=== PATIENT | female | born 2000 | race Caucasian/White ===

== ENCOUNTER 2019-12-04 07:01 | Emergency (ER) | payer OTHER, SELFPAY ==
[2019-12-04 07:02] VITALS: BP 146/86; PULSE 73; RESP 16; TEMP 36.3; O2SAT 98; BMI 22.4
[2019-12-04 07:31] LABS: Absolute Lymphocyte Count 2.59 X10^3/uL (0.83-4.51); Basophil# 0.06 X10^3/uL; Basophil% 0.5 % (0-1); Eosinophils% 0.9 % (0-5); Hematocrit 39.9 % (37-47); Hemoglobin 13.8 g/dL (12.0-15.0); Lymphocyte # 2.59 X10^3/ul (4.0); Lymphocyte % 22.1 % (19-41); Mean Corp Hgb Conc 34.6 g/dL (32-36); Mean Corpuscular Hgb 31.7 pg (27.0-32.0); Mean Corpuscular Volume 91.7 fL (81-99); Mean Platelet Vol. 9.6 fl (6.2-12.0); Monocyte# 0.89 X10^3/uL; Monocyte% 7.6 % (0-10); NRBC Flagged by Analyzer 0 % (0-5); Neutrophil # 8.01 X10^3/uL (2.7-7.7); Neutrophil % 68.4 % (47-70); Platelet Count 384 K/mm3 (150-450); RBC Distribution Width CV 12.2 % (11.6-14.6); RBC Distribution Width SD 41.1 fl (35.1-43.9); Red Blood Count 4.35 M/mm3 (4.2-5.4); White Blood Count 11.7 K/mm3 (4.4-11.0)
[2019-12-04 07:35] LABS: Internal QC Validated? YES +Cl - CLEAR BKGD
[2019-12-04 07:37] LABS: Pregnancy, Serum, hCG Quali. POSITIVE Negative
[2019-12-04] MEDS: 0.9% Normal Saline 1,000 ML 1000 ML IV (07:45)
[2019-12-04] MEDS: Morphine 4 MG/ML Syringe IV (07:46)
[2019-12-04] MEDS: Ondansetron 4 MG/2 ML Vial IV (07:46)
[2019-12-04 07:53] LABS: ALB/GLOB Ratio 1.1 RATIO (0.9-2.4); AST(SGOT) 19 U/L (15-37); Alanine Aminotransfer ALT/SGPT 14 U/L (13-56); Albumin, Serum 4.4 g/dL (3.2-5.0); Alkaline Phosphatase 49 U/L (45-117); Anion Gap 10 (5-15); BUN 11 mg/dL (7-18); BUN/Creat Ratio 12.7 RATIO (10-20); Chloride 107 mmol/L (98-107); Creatinine, Serum 0.87 mg/dL (0.55-1.02); EST Glomerular Filtration Rate 88 mL/min (>60); Est Glom Filt Rate - Afr Amer 107 mL/min (>60); Estimated Creatinine Clearance 92.82 ml/min; Globulin 3.9 g/dL (2.2-4.2); Glucose 96 mg/dL (74-106); Lipase 76 U/L (73-393); Potassium 3.3 mmol/L (3.5-5.1); Protein, Total 8.3 g/dL (6.4-8.2); Sodium Level 136 mmol/L (136-145)
--- NOTE | 2019-12-04 07:57 | ED.DCSUM_ITS ---
History of Present Illness Chief Complaint: Nausea/Vomiting Informant: Patient Onset: Weeks Current Severity: Mild Narrative: The patient presents with vomiting that she has had on and off for a specified period time possibly a week it was initially nauseous with vomiting and diarrhea the diarrhea has resolved she has had persistent vomiting she has no other complaints of fever cough no abdominal pain or vaginal bleeding she negates she was late for her last menstrual cycle in October did not have a menstrual cycle for November she took 4 home tests which were all positive this will be her first . She has no history of ectopic history of pelvic pain or vaginal bleeding just the vomiting the diarrhea has resolved yesterday she felt better and then the vomiting recurred today this morning and she came in for evaluation Past Medical History - Allergies and Home Meds Allergies/Adverse Reactions: Allergies No Known Allergies Allergy (Verified 12/04/19 07:03) Primary Care Physician: Care Physician,No Primary [Primary Care Provider] - Past Medical History: None Smoking Status: Current every day smoker Review of Systems General: Denies: Chills, Fever, Sweats Eyes: Denies: Visual changes - bilaterally, Diplopia ENT: Denies: Rhinorrhea, Sore throat Cardiovascular: Denies: Chest pain, Palpitations Respiratory: Denies: Dyspnea, Cough, Dyspnea on exertion Gastrointestinal: Reports: Vomiting. Denies: Abdominal pain, Nausea, Diarrhea, Melena, Hematochezia Genitourinary: Denies: Dysuria, Hematuria, Frequency Musculoskeletal: Denies: Back pain, Extremity Pain Skin: Denies: Rash, Wounds Neurological: Denies: Headache, Weakness, Numbness Physical Exam Vital Signs/Narrative: Vital Signs Temp Pulse Resp BP Pulse Ox 12/04/19 07:02 97.3 F L 73 16 146/86 H 98 General: Well nourished, Well developed, No Acute Distress Head: Normocephalic, Atraumatic Eyes: Perrl, EOMI ENT: Moist mucous membranes, No rhinorrhea Neck: Supple, Nontender Cardiovascular: Regular rate, Regular rhythm, No murmurs Respiratory: No distress, CTA bilaterally, Chest nontender Abdomen: Soft, Nontender, Nondistended, Normal bowel sounds Back: Nontender, Normal Inspection Extremities: Nontender, No edema Skin: Normal color, No rash Neurological: Alert, Oriented x3, Cranial nerves II-XII grossly intact, Normal Strength, Normal Sensation Psychological: Normal affect, Normal Mood Diagnostic/Tx/Re-eval - Medical Decision Making Patient's vital signs are unremarkable her physical exam is unremarkable she has vomiting of clear stomach content the abdomen is soft there is no tenderness rebound guarding organomegaly the backs unremarkable clinically she looks well she is had no coronavirus exposures given all the above ED screening evaluation IV fluids therapy The patient's ED screening evaluation was unremarkable her hCG did return positive, her urine showed signs of contamination culture sent on reevaluation she is no longer nauseated she is no longer vomiting she wants to go home she understands the above she has an appointment to see an [employer] next week she will take Zofran [id number] vitamins with iron and folate bland diet return for change in symptoms, again she has no pelvic pain no vaginal bleeding her abdomen is soft and nontender Home stable Impression final vomiting, ED Disposition - Plan for ED Patient: Diagnosis: , Vomiting affecting Prescriptions: Ondansetron [Zofran Odt] 4 mg PO Q8H PRN PRN #10 tab PRN Reason: Nausea Transmission Status: Received by [id number] Referrals: Care Physician,No Primary [Primary Care Provider] -
[2019-12-04 08:00] LABS: Mucous, Urine 0 SEEN /hpf (<or=2+); Red Blood Cells-Urine 0 SEEN /hpf (0-5)
[2019-12-04 08:03] LABS: Color, Urine Yellow (Yellow); Glucose, Dipstick Normal (Normal); Ketone-Dipstick 15 mg/dl (Negative); Leukocyte Esterase-Dipstick 25 /ul (Negative); Nitrite-Dipstick Negative (Negative); Occult Blood-Urine Negative /ul (Negative); Protein-Dipstick 30 mg/dl (Negative); Urine Bilirubin Dipstick Negative (Negative); Urine Clarity Sl. Cloudy (Clear); Urine Urobilinogen 1 mg/dl (Normal)
[2019-12-04 08:12] LABS: Bacteria 3+ /hpf (None Seen); Squamous Epithelial Cells - UA 10-25 SEEN /hpf (5-10)
[2019-12-04 08:13] LABS: White Blood Cells 5-10 SEEN /hpf (0-5)
[2019-12-04 09:49] VITALS: BP 124/77; PULSE 68; RESP 15; O2SAT 99
== END 2019-12-04 09:51 | disposition home or self-care (01) ==
PROVIDERS: Emergency Provider Emergency Medicine
DX: O21.9 Vomiting of pregnancy, unspecified (principal); O99.330 Smoking (tobacco) complicating pregnancy, unspecified trimester; F17.200 Nicotine dependence, unspecified, uncomplicated; Z3A.00 Weeks of gestation of pregnancy not specified
CPT/HCPCS: 80053; 81001; 83690; 84703; 85025; 87077; 87086; 87088; 96361; 96374; 96375; 99283; J7030; A4216; J2405